=== PATIENT | male | born 1940 | race Caucasian/White ===

== ENCOUNTER → 2017-05-07 | Outpatient (CLI) | payer MEDICARE, OTHER | END | disposition home or self-care (01) | LOC: CDC 11:35 | DX: Z01.810 Encounter for preprocedural cardiovascular examination (principal); I49.49 Other premature depolarization | CPT/HCPCS: 93000 ==

== ENCOUNTER 2017-12-26 15:46 | Emergency (ER) | payer OTHER ==
[~2017-12-26] VITALS: Ht 172.7 cm; Wt 99.4 kg
[2017-12-26 16:28] LABS: HEMATOCRIT 27.3 % (38.0-50.0); HEMOGLOBIN 8.3 G/DL (12.5-16.6); MCH 22.6 PG (29.0-34.0); MCHC 30.4 G/DL (30.0-36.0); MCV 74.2 FL (86-99); PLATELET COUNT 287 K/uL (156-360); RBC DIS.WIDTH-CV 17.8 % (11.8-14.6); RBC DIS.WIDTH-SD 47.5 % (39-53); RED BLOOD COUNT 3.68 M/uL (4.00-5.50); WHITE BLOOD COUNT 9.2 K/uL (4.1-10.2)
[2017-12-26 16:31] LABS: CHLORIDE 100 mEq/L (99-109); POTASSIUM 4.2 mEq/L (3.7-5.4); SODIUM 133 mEq/L (136-147)
[2017-12-26 16:33] LABS: GLUCOSE 119 mg/dL (70-99)
[2017-12-26 16:37] LABS: CREATININE 1.3 mg/dL (0.6-1.3); GFR ESTIMATE (CALCULATED) 57 mL/min/ (58.99-99999)
[2017-12-26 16:38] LABS: UREA NITROGEN (BUN) 18 mg/dL (9-23)
[2017-12-26 16:45] LABS: TROP-I INTERPRETATION NEGATIVE; TROPONIN-I < 0.01 ng/mL (0.0-0.30)
[2017-12-26 19:21] VITALS: BP 145/75
== END 2017-12-26 19:37 | disposition home or self-care (01) ==
LOC: EME 15:46
PROVIDERS: Emergency Medicine
DX: D64.9 Anemia, unspecified (principal); R06.02 Shortness of breath; R60.0 Localized edema; F79 Unspecified intellectual disabilities; L40.9 Psoriasis, unspecified
CPT/HCPCS: 71045; 71275; 80048; 84484; 85027; 93005; 93970; 99281; 99285; J2060

== ENCOUNTER 2018-02-04 09:51 | Emergency (ER) | payer OTHER ==
[~2018-02-04] VITALS: Ht 177.8 cm; Wt 99.0 kg
[2018-02-04 11:05] VITALS: BP 164/57
== END 2018-02-04 11:06 | disposition home or self-care (01) ==
LOC: EME 09:51
DX: R09.02 Hypoxemia (principal); R42 Dizziness and giddiness; Z91.81 History of falling; R94.31 Abnormal electrocardiogram [ECG] [EKG]; F79 Unspecified intellectual disabilities
CPT/HCPCS: 93005; 99281; 99284

== ENCOUNTER 2018-02-05 11:20 | Emergency (ER) | payer OTHER ==
[~2018-02-05] VITALS: Ht 172.7 cm; Wt 94.6 kg
[2018-02-05 12:07] LABS: HEMATOCRIT 29.6 % (38.0-50.0); HEMOGLOBIN 9.2 G/DL (12.5-16.6); MCH 23.1 PG (29.0-34.0); MCHC 31.1 G/DL (30.0-36.0); MCV 74.2 FL (86-99); PLATELET COUNT 350 K/uL (156-360); RBC DIS.WIDTH-CV 17.1 % (11.8-14.6); RBC DIS.WIDTH-SD 45.8 % (39-53); RED BLOOD COUNT 3.99 M/uL (4.00-5.50); WHITE BLOOD COUNT 11.6 K/uL (4.1-10.2)
[2018-02-05 12:08] LABS: CHLORIDE 100 mEq/L (99-109); POTASSIUM 4.3 mEq/L (3.7-5.4); SODIUM 133 mEq/L (136-147)
[2018-02-05 12:09] LABS: GLUCOSE 127 mg/dL (70-99)
[2018-02-05 12:13] LABS: CREATININE 1.2 mg/dL (0.6-1.3); GFR ESTIMATE (CALCULATED) > 59 mL/min/ (58.99-99999)
[2018-02-05 12:14] LABS: TROP-I INTERPRETATION NEGATIVE; TROPONIN-I 0.02 ng/mL (0.0-0.30); UREA NITROGEN (BUN) 15 mg/dL (9-23)
[2018-02-05 16:02] LABS: APPEARANCE CLEAR ((CLEAR)); BILIRUBIN NEGATIVE; BLOOD NEGATIVE; COLOR YELLOW ((YELLOW)); GLUCOSE (STRIP) 50; KETONES 5; LEUKOCYTES MODERATE; NITRITE NEGATIVE; PROTEIN (STRIP) NEGATIVE; SPECIFIC GRAVITY 1.011 (1.000-1.030); UROBILINOGEN 0.2 MG/DL (0.2-1.0)
[2018-02-05 16:04] LABS: BACTERIA RARE /HPF; EPITHELIAL CELLS RARE /HPF; MUCUS TRACE /LPF
[2018-02-05 20:52] VITALS: BP 141/82
== END 2018-02-05 20:55 | disposition home or self-care (01) ==
LOC: EME 11:20 → EXP 11:20
PROVIDERS: Physician Assistant
DX: N13.30 Unspecified hydronephrosis (principal); R06.00 Dyspnea, unspecified; R42 Dizziness and giddiness; L40.9 Psoriasis, unspecified
CPT/HCPCS: 70450; 71046; 71275; 74177; 80048; 81003; 84484; 85027; 93005; 99281; 99285; J7040

== ENCOUNTER → 2018-02-07 | Outpatient (CLI) | payer MEDICARE, OTHER | END | disposition home or self-care (01) | LOC: CDC 11:30 | DX: Z01.810 Encounter for preprocedural cardiovascular examination (principal); R94.31 Abnormal electrocardiogram [ECG] [EKG] | CPT/HCPCS: 93000 ==